=== PATIENT | male | born 1990 | race Caucasian/White ===

== ENCOUNTER 2020-08-26 16:33 | Outpatient (REF) | payer OTHER, SELFPAY | END 2020-08-26 16:34 | disposition home or self-care (01) | LOC: HO.LAB 16:33 | PROVIDERS: Visit Provider Internal Medicine | DX: Z20.828 Contact with and (suspected) exposure to other viral communicable diseases (principal) | CPT/HCPCS: C9803; U0003 ==

== ENCOUNTER 2025-03-18 06:08 | Observation (INO) | payer BC, OTHER, SELFPAY ==
[2025-03-18] VITALS (9 sets, daily range): BP systolic 132–168; BP diastolic 71–100; PULSE 70–89; RESP 16–18; TEMP 36.7–36.8; O2SAT 97–100; BMI 42.6; BMI 43.4
--- NOTE | ~2025-03-18 | CT_ITS ---
EXAMINATION: CT FOREARM WITHOUT CONTRAST, RIGHT CLINICAL INFORMATION: Injury, swelling, rule out occult fracture. COMPARISON: Plain films right forearm earlier same day. TECHNIQUE: Spiral CT imaging of the cervical spine performed in axial plane without contrast. Multiplanar reformatted images were constructed from the axial data set. This CT examination was performed using dose optimization techniques as appropriate, variously including the following: *Automated exposure control *Adjustment of mA and/or kV according to patient size (this includes techniques or standardized protocols for targeted exams where dose is matched to indication/reason for exam; i.e. extremities or head) *Use of iterative reconstruction technique FINDINGS: There is no definite bony fracture. There is no bone lesion or periostitis identified. There is no elbow joint effusion. There are mild degenerative changes in the ulnar trochlear joint. There are dorsal changes of soft tissue swelling with small foci of subcutaneous gas noted superficially, likely secondary to penetrating injury. No discrete hematoma or organized fluid collection is evident. CT/CT forearm RT wo IV con IMPRESSION: 1. No definite bony fracture or dislocation. 2. Dorsal soft tissue swelling, with small subcutaneous foci of gas present suggestive of penetrating injury. Electronically signed by: Jacob Garcia MD 03/18/2025 09:51 AM EDT
--- NOTE | ~2025-03-18 | XR_ITS ---
CLINICAL HISTORY: injury 2 view right forearm Comparison: None Findings: No fractures or dislocations. No joint effusion. Soft tissue edema dorsally with soft tissue gas. No radiopaque foreign body. IMPRESSION: Soft tissue edema and soft tissue gas. No radiopaque foreign body or fracture. This document has been electronically signed by: Bruce Rao MD on 03/18/2025 07:01:53
[2025-03-18] MEDS: Acetaminophen 325 MG TABLET 975 MG PO (07:24)
--- NOTE | 2025-03-18 07:33 | ED_ITS ---
HPI - Extremity Problem General Chief complaint: Extremity Injury, Upper Stated complaint: R Arm Pain Work Injury 03/18/25 Time Seen by Provider: 03/18/25 07:23 Source: patient Mode of arrival: ambulatory Limitations: no limitations History of Present Illness HPI Narrative: this is a 33 years old the patient presented to the emergency department complaining of right forearm pain. He states that he was at work about 05:00 injured the he right forearm with hydraulic push bar. He has been having pain since the injury. Forearm is swollen. MD Complaint: extremity pain Onset (ago): hour(s) (2) Pain Consistency: constant Location: right and other (forearm) Quality: aching Radiation: none Relieving factors: nothing Exacerbating factors: nothing Associated symptoms: denies other symptoms Related Data Home Medications ?Medication ?Instructions ?Recorded ?Confirmed acetaminophen 500 mg tablet 1,000 mg PO Q6H PRN Pain 0 03/18/25 03/18/25 cetirizine 10 mg tablet (Zyrtec) 10 mg PO DAILY PRN Al lergy Symptoms 03/18/25 03/18/25 Allergies Allergy/AdvReac Type Severity Reaction Status Date / Time No Known Allergies Allergy Verified 03/18/25 06:16 Review of Systems 2 Constitutional: Constitutional: Reports no additional constitutional complaints ENT: Reports system reviewed and no additional complaints, except as documented Cardiovascular: Cardiovascular: Reports no additional cardiovascular complaints [facility] Past Medical History [facility] Narrative: Denies any major medical problems Family History Family History (Updated 03/18/25 @ 13:27 by Lucero Bruce NP) Mother Breast cancer Social History Social History Alcohol intake: current Alcohol intake frequency: a few times a week Patient Tobacco Use Status: Never used Tobacco Substance Use Type: Marijuana Physical Exam 2 Vital Signs: Vital Signs: Last Vital Signs Temp 98.0 F 03/19/25 02:36 Pulse 85 03/19/25 02:36 Resp 18 03/19/25 02:36 BP 143/72 H 03/19/25 02:36 Pulse Ox 99 03/19/25 02:36 O2 Del Method Room Air 03/19/25 02:36 BMI result Body Mass Index 42.6 no acute distress Const: General: cooperative Nutritional Appearance: average body habitus Limitations: no limitations HEENT: Head: Yes normal to inspection General nose exam: Normal external nose present Face and sinus: Yes normal facial exam Mouth: Normal oral and palatal mucosa present Throat: Yes posterior oropharynx normal Neck: Neck: Yes normal visual inspection Chest: Chest palpation & inspection: normal inspection of the chest Resp: Effort & Inspection: normal respiratory effort Auscultation: clear to auscultation bilaterally Cardio: Jugular venous distension: no JVD Rate: regular rate Rhythm: r egular rhythm GI: Inspection: Yes normal to inspection Palpation (GI): Soft to palpation Skin: Other: he has a superficial abrasion in the right forearm 4 cm in length see picture Extrem: Other: there is swelling and tenderness in the right forearm radial pulses present Course Reevaluation(s) Reevaluation #1: CT reviewed he has area of gas in the subcutaneous suggesting of penetrating injury. I reached out to ortho via tiger text I sent a picture of the forearm reported the CT waiting for ortho response. [facility] Time: 10:11 Medications Administered Generic Name Dose Route Start Last Admin Trade Name Freq PRN Reason Stop Dose Admin Ceftriaxone Sodium 1 gm 03/18/25 12:00 03/18/25 12:23 Ceftriaxone Sodium 1 Gm Vial IVPUSH Not Given Q24H SHARATH Enoxaparin Sodium 40 mg 03/18/25 14:00 03/18/25 15:39 Enoxaparin Sodium 40 Mg/0.4 Ml Syringe SUBCUT 40 mg Q24H SHARATH Administration Vancomycin HCl 1,000 mg/ 270 mls @ 270 mls/hr 03/19/25 00:00 03/19/25 00:10 Sodium Chloride IV Infused Q8H SHARATH Infusion Sodium Chloride 3 ml 03/18/25 16:00 03/18/25 23:05 0.9 % Sodium Chloride Flush 3 Ml Syringe IVFLUSH 3 ml QSHIFT SHARATH Administration Discontinued Medications Generic Name Dose Route Start Last Admin Trade Name Freq PRN Reason Stop Dose Admin Acetaminophen 975 mg 03/18/25 07:10 03/18/25 07:24 Acetaminophen 325 Mg Tablet PO 03/18/25 07:11 975 mg ONCE ONE Administration Ceftriaxone Sodium 2 gm 03/18/25 10:46 03/18/25 12:23 Ceftriaxone Sodium 2 Gm Vial IVPUSH 03/18/25 10:47 2 gm ONCE ONE Administration Vancomycin HCl 2,000 mg in 500 mls @ 250 mls/hr 03/18/25 13:45 03/18/25 20:00 Vancomycin/Ns IV 03/18/25 15:44 Infused ONCE ONE Infusion Ketorolac Tromethamine 15 mg 03/18/25 07:32 03/18/25 08:01 Ketorolac Tromethamine 15 Mg/Ml Vial IVPUSH 03/18/25 07:33 15 mg ONCE ONE Administration Medical Decision Making Medical Decision Making [facility] Narrative: patient presented with injury at work in the right forearm 2 hours ago we will obtain imaging rule out fracture Lab Data 03/19/25 05:12 03/19/25 05:12 Labs: Lab Results 03/18/25 Range/Units 07:56 WBC 10.1 (4.8-10.8) X10*3/uL RBC 5.55 (4.60-5.80) X10*6/uL Hgb 15.9 (14.0-18.0) g/dl Hct 46.5 (42.0-52.0) % MCV 83.8 (80.0-98.0) fL MCH 28.6 (27.0-33.0) pg MCHC 34.2 (31.0-36.0) g/dl RDW 14.1 (11.0-16.0) % Plt Count 252 (160-400) X10*3/uL MPV 9.2 L (9.4-12.4) fL Immature Gran % (Auto) 1.5 H (0.0-0.4) % Neut % (Auto) 74.3 H (45-73) % Lymph % (Auto) 13.8 L (20-40) % [place] % (Auto) 7.5 (2-11) % Eos % (Auto) 2.2 (0-4) % Baso % (Auto) 0.7 (0-2) % Lymph # (Auto) 1.4 (1.2-4.9) X10*3/uL [place] # (Auto) 0.8 (0.1-1.2) X10*3/uL Eos # (Auto) 0.2 (0.0-0.4) X10*3/uL Baso # (Auto) 0.1 (0.0-0.2) X10*3/uL Abs Immat Gran (auto) 0.15 H (0.00-0.03) X10*3/uL Absolute Neuts (auto) 7.5 (2.0-8.3) x10*3/uL Absolute Nucleated RBC 0.000 (0.0-0.012) X10*3/uL Nucleated RBC % (auto) 0.0 (0.0-0.2) /100WBC ESR 6 (0-15) MM/HR Sodium 139 (135-145) mmol/L Potassium 5.3 H (3.3-5.1) mmol/L Chloride 106 (96-108) mmol/L Carbon Dioxide 24 (22-29) mmol/L Anion Gap 14 (12-20) BUN 18 H (9-16) mg/dL Creatinine 0.67 (0.5-1.4) mg/dL Estim Creat Clear Calc 178.5 Estimated GFR > 60 Random Glucose 100 (60-115) mg/dL Calcium 9.7 (8.4-10.2) mg/dL Total Bilirubin 0.5 (0.0-1.0) mg/dL AST 44 H (5-37) U/L ALT 26 (0-40) U/L Alkaline Phosphatase 50 (39-117) U/L Total Protein 8.2 H (6.5-8.0) g/dL Albumin 4.7 (3.5-5.0) g/dL Discharge Plan Discharge Clinical Impression: Cellulitis Qualifiers: Site of cellulitis: extremity Site of cellulitis of extremity: upper extremity Laterality: right Qualified Code(s): L03.113 - Cellulitis of right upper limb Patient Disposition: Admitted As Inpatient Interventions: Admission Worksheet (ED) Last Done: 03/18/25 19:29 Discharge Date/Time: 03/18/25 20:15
[2025-03-18] MEDS: Ketorolac Tromethamine 15 MG/ML VIAL IVPUSH (08:01)
[2025-03-18 08:03] LABS: MANUAL DIFF FLAG NO
[2025-03-18 08:05] LABS: Basophils Absolute Auto 0.1 X10*3/uL (0.0-0.2); Basophils Percent Auto 0.7 % (0-2); Eosinophils Absolute Auto 0.2 X10*3/uL (0.0-0.4); Eosinophils Percent Auto 2.2 % (0-4); Hematocrit 46.5 % (42.0-52.0); Hemoglobin 15.9 g/dl (14.0-18.0); Imm Gran Abs Auto 0.15 X10*3/uL (0.00-0.03); Imm Gran Pct Auto 1.5 % (0.0-0.4); Lymphocytes Absolute Auto 1.4 X10*3/uL (1.2-4.9); Lymphocytes Percent Auto 13.8 % (20-40); Mean Corpuscular HGB Conc 34.2 g/dl (31.0-36.0); Mean Corpuscular Hemoglobin 28.6 pg (27.0-33.0); Mean Corpuscular Volume 83.8 fL (80.0-98.0); Mean Platelet Volume 9.2 fL (9.4-12.4); Monocytes Absolute Auto 0.8 X10*3/uL (0.1-1.2); Monocytes Percent Auto 7.5 % (2-11); Neutrophils Absolute Auto 7.5 x10*3/uL (2.0-8.3); Neutrophils Percent Auto 74.3 % (45-73); Platelet Count 252 X10*3/uL (160-400); Red Blood Count 5.55 X10*6/uL (4.60-5.80); Red Cell Distribution Width 14.1 % (11.0-16.0); White Blood Count 10.1 X10*3/uL (4.8-10.8)
[2025-03-18 08:18] LABS: Alanine Aminotransferase 26 U/L (0-40); Albumin Level 4.7 g/dL (3.5-5.0); Alkaline Phosphatase 50 U/L (39-117); Anion Gap 14 (12-20); Aspartate Amino Transferase 44 U/L (5-37); Bilirubin Total 0.5 mg/dL (0.0-1.0); Blood Urea Nitrogen 18 mg/dL (9-16); Calcium 9.7 mg/dL (8.4-10.2); Carbon Dioxide 24 mmol/L (22-29); Chloride 106 mmol/L (96-108); Creatinine Clr Calc Pharmacy 178.5; Estimated Glomerular Filt Rate > 60; Glucose Random 100 mg/dL (60-115); Potassium 5.3 mmol/L (3.3-5.1); Sodium 139 mmol/L (135-145); Total Protein 8.2 g/dL (6.5-8.0)
[2025-03-18 08:45] LABS: Erythrocyte Sedimentation Rate 6 MM/HR (0-15)
--- NOTE | 2025-03-18 10:13 | PC.NURSE ---
Dr. De Dios went to bedside to speak with patient regarding imaging/lab results. Dr. De Dios speaking with ortho at this time, awaiting response. Female visitor at bedside. No acute distress at this time. Care ongoing by this RN.
--- NOTE | 2025-03-18 11:41 | PM.CNOR ---
History of Present Illness HPI Consult date: 03/18/25 Chief complaint: forearm injury cellulitis Narrative: 34 yo male in the ED for right forearm injury that happened earlier this morning at work. He states he was working on a press machine when the machine grazed his arm which was on a belt and he felt some pressure to the arm. He states the machine did not compress the arm. He also has an abraison along the ulnar side of the forearm which appears to be old. The skin around the abrasion is red and swollen. There is tenderness to the forearm. Unclear if this swelling / tenderness is due to the work injury or abrasion. Patient uncertain. Review of Systems Review of Systems: Yes all other systems are reviewed and are negative [facility] Social History Social History Alcohol intake: current Alcohol intake frequency: a few times a week Smoked in Last 30 Days: No Use of substances other than those prescribed or required for medical reasons: Yes Substance Use Type: Marijuana Substance Use Frequency: Daily Advance Directives: No Advance Directives Information Provided: Yes Do you have a plan to hurt others: No Plan Meds Allergies Allergy/AdvReac Type Severity Reaction Status Date / Time No Known Allergies Allergy Verified 03/18/25 06:16 Physical Exam Vital Signs: Vital Signs: Last Vital Signs Temp 98.1 F 03/18/25 06:20 Pulse 86 03/18/25 09:07 Resp 16 03/18/25 09:07 BP 150/99 H 03/18/25 09:07 Pulse Ox 99 03/18/25 09:07 O2 Del Method Room Air 03/18/25 09:07 BMI result Body Mass Index 42.6 Const: General: cooperative and no acute distress Orientation/consciousness: patient oriented x3 Resp: Effort & Inspection: normal respiratory effort and able to speak in complete sentences Cardio: Peripheral pulses: Peripheral pulses 2+ throughout Neuro: General: patient oriented x3 Extrem: Other: Right forearm normal to inspection. He does has diffuse swelling over the forearm with mild tenderness. No abscess formation. Abraison is scabbed but there is redness surrounding the area. He is able to perfrom full ROM at the wrist and elbow. Pulses present. Results Labs 03/18/25 07:56 03/18/25 07:56 Labs: Abnormal lab results 03/18/25 Range/Units 07:56 MPV 9.2 L (9.4-12.4) fL Immature Gran % (Auto) 1.5 H (0.0-0.4) % Neut % (Auto) 74.3 H (45-73) % Lymph % (Auto) 13.8 L (20-40) % Abs Immat Gran (auto) 0.15 H (0.00-0.03) X10*3/uL Potassium 5.3 H (3.3-5.1) mmol/L BUN 18 H (9-16) mg/dL AST 44 H (5-37) U/L Total Protein 8.2 H (6.5-8.0) g/dL H & H 03/18/25 Range/Units 07:56 Hgb 15.9 (14.0-18.0) g/dl Hct 46.5 (42.0-52.0) % All other labs normal. Assessment and Plan (1) Cellulitis: Qualifiers: Laterality: right Site of cellulitis: extremity Site of cellulitis of extremity: upper extremity Qualified Code(s): L03.113 - Cellulitis of right upper limb Status: Acute Plan CT forearm RT wo IV con IMPRESSION: 1. No definite bony fracture or dislocation. 2. Dorsal soft tissue swelling, with small subcutaneous foci of gas present suggestive of penetrating injury. No evidence of compartment syndrome No evidence of abscess formation requiring orthopedic intervention Reconsult if any new concerns. Procedures Date of Service Date of Service: 03/18/25
--- NOTE | 2025-03-18 12:10 | PHA.MEDREC ---
Addendum entered by Venessa Starr [facility] 03/18/25 12:18: reviewed Original Note: Pharmacy Consult ? Medication Reconciliation Pharmacy has completed the medication reconciliation. Spoke with pt and pt at bedside and they confirmed the pt only takes Zyrtec 10mg and Acetaminophen 500mg tabs as needed and nothing else at this time.
[2025-03-18] MEDS: cefTRIAXone sodium 2 GM VIAL IVPUSH (12:23)
--- NOTE | 2025-03-18 13:24 | P.HPHOSP_ITS ---
History of Present Illness Date of Service: 03/18/25 Chief Complaint: Wound 34-year-old man presenting with right forearm injury. Patient reports that he does not really know where he got up but may have gotten it from work. He denied fever, chills, nausea, vomiting, diarrhea. He did report some tenderness to the touch at the site. He denies any recent travel, injury. Forearm CT showing no definite bony fracture dislocation, dorsal soft tissue swelling with small subcutaneous foci of gas present suggestive of penetrating injury. Wound looks clean and dry, almost as if it happened several days ago. Patient has no fever leukocytosis. Mildly elevated blood pressure with no history of hypertension. Patient was given a dose of Rocephin, Toradol, Tylenol in the ER. He will be admitted for further management and treatment of acute cellulitis. Review of Systems 2 Review of Systems: Denies any recent fever chills or decrease in appetite respiratory denies any shortness of breath or cough cardiovascular denied chest pain gastrointestinal denies any dysphagia abdominal pain nausea vomiting or diarrhea genitourinary denies any dysuria frequency or hematuria musculoskeletal denies any joint pain or swelling neuropsych denies any weakness or seizures all other systems reviewed are negative [facility] Family History (Updated 03/18/25 @ 13:27 by Lucero Bruce NP) Mother Breast cancer Social History Alcohol intake: current Alcohol intake frequency: a few times a week Smoked in Last 30 Days: No Use of substances other than those prescribed or required for medical reasons: Yes Substance Use Type: Marijuana Substance Use Frequency: Daily Advance Directives: No Advance Directives Information Provided: Yes Do you have a plan to hurt others: No Plan Meds Allergies Allergy/AdvReac Type Severity Reaction Status Date / Time No Known Allergies Allergy Verified 03/18/25 06:16 Active Medications: Current Medications Acetaminophen (Acetaminophen 325 Mg Tablet) 650 mg PO Q6H PRN PRN Reason: Pain, Mild 1-3,fever,headache Calcium Carbonate (Calcium Carbonate 750 Mg Tab.Chew) 750 mg PO Q4H PRN PRN Reason: Heartburn Ceftriaxone Sodium (Ceftriaxone Sodium 1 Gm Vial) 1 gm IVPUSH Q24H SHARATH Enoxaparin Sodium (Enoxaparin Sodium 40 Mg/0.4 Ml Syringe) 40 mg SUBCUT Q24H SHARATH Vancomycin HCl 1,000 mg/ (Sodium Chloride) 270 mls @ 270 mls/hr IV Q12H [facility] Magnesium Hydroxide (Milk Of Magnesia 30 Ml Oral.Susp) 30 ml PO DAILY PRN PRN Reason: Constipation Melatonin (Melatonin 3 Mg Tablet) 6 mg PO BEDTIME PRN PRN Reason: Insomnia Ondansetron HCl (Ondansetron Hcl 4 Mg/2 Ml Vial) 4 mg IVPUSH Q8H PRN PRN Reason: Nausea and Vomiting Oxycodone HCl (Oxycodone Hcl Immed Release 5 Mg Tablet) 5 mg PO Q6H PRN PRN Reason: Pain, Severe (Pain Scale 7-10) Pharmacy Consult (Consult Rx Vancomycin Dosing) 1 each MISCELLANE DAILY PRN PRN Reason: Consult order Sodium Chloride (0.9 % Sodium Chloride Flush 3 Ml Syringe) 3 ml IVFLUSH QSHIFT [facility] Home Medications ?Medication ?Instructions ?Recorded ?Confirmed ?Last Taken ?Type acetaminophen 500 mg tablet 1,000 mg PO Q6H PRN Pain 03/18/25 03/18/25 Unknown History cetirizine 10 mg tablet (Zyrtec) 10 mg PO DAILY PRN Allergy Symptoms 03/18/25 03/18/25 Unknown History Physical Exam 2 Vital Signs and Narrative: Vital Signs: Last Vital Signs Temp 98.1 F 03/18/25 06:20 Pulse 70 03/18/25 12:00 Resp 16 03/18/25 12:00 BP 168/100 H 03/18/25 12:00 Pulse Ox 100 03/18/25 12:00 O2 Del Method Room Air 03/18/25 12:00 BMI result Body Mass Index 42.6 Appearing in no acute distress lung sounds are clear to auscultation heart regular rate rhythm, clear S1, S2 positive bowel sounds, abdomen is soft, nontender neuro patient is alert x3, no focal deficits Results Labs 03/18/25 07:56 03/18/25 07:56 Labs: Laboratory Results - last 24 hr 03/18/25 07:56 MCV 83.8 MCH 28.6 MCHC 34.2 RDW 14.1 Plt Count 252 MPV 9.2 L Immature Gran % (Auto) 1.5 H Neut % (Auto) 74.3 H Lymph % (Auto) 13.8 L [place] % (Auto) 7.5 Eos % (Auto) 2.2 Baso % (Auto) 0.7 Lymph # (Auto) 1.4 [place] # (Auto) 0.8 Eos # (Auto) 0.2 Baso # (Auto) 0.1 Abs Immat Gran (auto) 0.15 H Absolute Neuts (auto) 7.5 Absolute Nucleated RBC 0.000 Nucleated RBC % (auto) 0.0 ESR 6 Anion Gap 14 Estim Creat Clear Calc 178.5 Estimated GFR > 60 Random Glucose 100 Calcium 9.7 Total Bilirubin 0.5 AST 44 H ALT 26 Alkaline Phosphatase 50 Total Protein 8.2 H Albumin 4.7 Imaging Radiologist's Impressions: Impressions Forearm CT 03/18/25 07:26 IMPRESSION: 1. No definite bony fracture or dislocation. 2. Dorsal soft tissue swelling, with small subcutaneous foci of gas present suggestive of penetrating injury. Electronically signed by: Jacob Garcia MD 03/18/2025 09:51 AM EDT RP Assessment and Plan (1) Cellulitis: Qualifiers: Laterality: right Site of cellulitis: extremity Site of cellulitis of extremity: upper extremity Qualified Code(s): L03.113 - Cellulitis of right upper limb Status: Acute Plan 34-year-old man admitted with cellulitis of right forearm after possible injury at work Cellulitis, acute Right forearm, does not appear to be fresh, maybe a few days old Forearm cat scan negative for fracture or dislocation, dorsal soft tissue swelling with small subcutaneous foci of gas General surgery consultation Wound is clean and dry at this time Hyperkalemia Potassium 5.3 Monitor Elevated blood pressure reading Patient denies any history of hypertension Monitor May consider adding antihypertensive agent Seasonal allergies Continue cetirizine DVT prophylaxis with Lovenox Full code Quality Stroke Does the patient have a stroke diagnosis?: No VTE Prior VTE?: No VTE Risk Level:: Medical - moderate - high VTE Device Contraindication: N/A - Device Ordered VTE Drug Contraindication: N/A - Med Ordered
[2025-03-18] MEDS: vancomycin/NS 2,000 MG/500 ML PLAST..BAG 250 MG IV (15:39)
[2025-03-18] MEDS: Enoxaparin Sodium 40 MG/0.4 ML SYRINGE SUBCUT (15:39)
[2025-03-18] MEDS: 0.9 % Sodium Chloride Flush 3 ML SYRINGE IVFLUSH ×2 (15:39→23:05)
[2025-03-18] MEDS: vancomycin HCL 1,000 MG in 0.9 % Sodium Chloride 250 ML 270 MG IV (23:09)
[2025-03-19 02:36] VITALS: BP 143/72; PULSE 85; RESP 18; TEMP 36.7; O2SAT 99
[2025-03-19 06:06] LABS: MANUAL DIFF FLAG NO
[2025-03-19 06:24] LABS: Basophils Percent Auto 0.3 % (0-2); Eosinophils Absolute Auto 0.2 X10*3/uL (0.0-0.4); Eosinophils Percent Auto 2.2 % (0-4); Hematocrit 44.6 % (42.0-52.0); Hemoglobin 15.3 g/dl (14.0-18.0); Imm Gran Abs Auto 0.14 X10*3/uL (0.00-0.03); Imm Gran Pct Auto 1.5 % (0.0-0.4); Lymphocytes Percent Auto 10.8 % (20-40); Mean Corpuscular HGB Conc 34.3 g/dl (31.0-36.0); Mean Corpuscular Hemoglobin 28.5 pg (27.0-33.0); Mean Corpuscular Volume 83.1 fL (80.0-98.0); Mean Platelet Volume 9.5 fL (9.4-12.4); Monocytes Absolute Auto 0.7 X10*3/uL (0.1-1.2); Monocytes Percent Auto 7.1 % (2-11); Neutrophils Absolute Auto 7.1 x10*3/uL (2.0-8.3); Neutrophils Percent Auto 78.1 % (45-73); Platelet Count 236 X10*3/uL (160-400); Red Blood Count 5.37 X10*6/uL (4.60-5.80); Red Cell Distribution Width 14.1 % (11.0-16.0); White Blood Count 9.1 X10*3/uL (4.8-10.8)
[2025-03-19 06:28] LABS: Creatinine Clr Calc Pharmacy 208.6; Estimated Glomerular Filt Rate > 60
[2025-03-19 07:41] LABS: Anion Gap 12 (12-20); Blood Urea Nitrogen 11 mg/dL (9-16); Carbon Dioxide 24 mmol/L (22-29); Chloride 106 mmol/L (96-108); Glucose Random 97 mg/dL (60-115); Potassium 4.2 mmol/L (3.3-5.1); Sodium 138 mmol/L (135-145)
[2025-03-19 07:50] VITALS: BP 135/77; PULSE 84; RESP 18; TEMP 36.7; O2SAT 97
[2025-03-19] MEDS: 0.9 % Sodium Chloride Flush 3 ML SYRINGE IVFLUSH ×2 (07:55→15:21)
[2025-03-19] MEDS: vancomycin HCL 1,000 MG in 0.9 % Sodium Chloride 250 ML 270 MG IV (07:55)
[2025-03-19 12:00] VITALS: BP 125/70; PULSE 83; RESP 19; TEMP 37.4; O2SAT 99
[2025-03-19] MEDS: cefTRIAXone sodium 1 GM VIAL IVPUSH (12:26)
[2025-03-19 12:52] LABS: Vancomycin Random 13.2 mcg/mL (15-20)
[2025-03-19 12:55] LABS: Lactic Acid 1.1 mmol/L (0.5-2.0)
--- NOTE | 2025-03-19 13:10 | MHC.CM.PN ---
pt lives with he is indepdent has his [place] in [facility] [place] dc plan home no services
[2025-03-19] MEDS: vancomycin HCL 1,250 MG in 0.9 % Sodium Chloride 250 ML 166.67 MG IV (15:17)
[2025-03-19] MEDS: Enoxaparin Sodium 40 MG/0.4 ML SYRINGE SUBCUT (15:18)
--- NOTE | 2025-03-19 15:46 | PM.DS ---
DS: Providers Provider Date of Service: 03/19/25 Date of admission: 03/18/25 11:09 Date of discharge: 03/19/25 Primary care physician: None Physician Consults: 03/18/25 11:09 Consult to Orthopedics Routine Consulting Provider: [facility] Reason for consultation: penetrating injury with subcutanoues gas formation forearm 03/18/25 11:10 Consult to Orthopedics Stat Consulting Provider: [facility] Reason for consultation: swelling rt forearm ,subq gas ,redness 03/18/25 20:49 Consult to Wound Care Routine Reason for consultation: red/scab rt arm Attending physician on discharge: Ronny Noel Discharging clinician: Marta Rojo DS: Diagnosis Discharge Diagnosis (1) Cellulitis: Status: Acute DS: Summary Hospital Course Hospital Course: From H&P on the day of admission 34-year-old man presenting with right forearm injury. Patient reports that he does not really know where he got up but may have gotten it from work. He denied fever, chills, nausea, vomiting, diarrhea. He did report some tenderness to the touch at the site. He denies any recent travel, injury. Forearm CT showing no definite bony fracture dislocation, dorsal soft tissue swelling with small subcutaneous foci of gas present suggestive of penetrating injury. Wound looks clean and dry, almost as if it happened several days ago. Patient has no fever leukocytosis. Mildly elevated blood pressure with no history of hypertension. Patient was given a dose of Rocephin, Toradol, Tylenol in the ER. He will be admitted for further management and treatment of acute cellulitis. right arm Cellulitis Right forearm wound, does not appear to be acute but likely source of small foci of gas seen on CT scan. No evidence of foreign body, compartment soft, no evidence of compartment syndrome. CPK normal. Seen by Orthopedic surgery, no compartment syndrome, no indication for any surgical intervention. Lactic acid normal, no subcutaneous emphysema on exam. No white count, no fever. Erythema improving. will discharge to complete course of antibiotics. Wound is clean and dry at this time. Hyperkalemia Potassium 5.3. Resolved. Time Attestation Discharge Coordination Time (in mins): 35 Quality: Safe Use of Opioids Does Pt have an Active Cancer Diagnosis on the Problem List?: No Quality: Stroke Does the patient have a stroke diagnosis?: No Physical Exam Vital Signs: Vital Signs: Last Vital Signs Temp 99.3 F 03/19/25 12:00 Pulse 83 03/19/25 12:00 Resp 19 03/19/25 12:00 BP 125/70 03/19/25 12:00 Pulse Ox 99 03/19/25 12:00 O2 Del Method Room Air 03/19/25 12:00 BMI result Body Mass Index 43.4 Const: General: cooperative, comfortable, no acute distress, alert and awake Nutritional Appearance: obese Orientation/consciousness: patient oriented x3 Resp: Effort & Inspection: normal respiratory effort, able to speak in complete sentences, no respiratory distress and no use of accessory muscles Cardio: Rate: regular rate Skin: Other: right forearm mild swelling, some bruising; compartments soft; palpable distal pulses; no subq emphysema. wound with no fluctuance or drainage Neuro: General: patient oriented x3 DS: Data Data Completed and Pending Labs on day of discharge: Laboratory Results - last 24 hr 03/19/25 03/19/25 05:12 12:29 WBC 9.1 RBC 5.37 Hgb 15.3 Hct 44.6 MCV 83.1 MCH 28.5 MCHC 34.3 RDW 14.1 Plt Count 236 MPV 9.5 Immature Gran % (Auto) 1.5 H Neut % (Auto) 78.1 H Lymph % (Auto) 10.8 L [place] % (Auto) 7.1 Eos % (Auto) 2.2 Baso % (Auto) 0.3 Lymph # (Auto) 1.0 L [place] # (Auto) 0.7 Eos # (Auto) 0.2 Baso # (Auto) 0.0 Abs Immat Gran (auto) 0.14 H Absolute Neuts (auto) 7.1 Absolute Nucleated RBC 0.000 Nucleated RBC % (auto) 0.0 Sodium 138 Potassium 4.2 D Chloride 106 Carbon Dioxide 24 Anion Gap 12 BUN 11 Creatinine 0.58 Estim Creat Clear Calc 208.6 Estimated GFR > 60 Random Glucose 97 Lactic Acid 1.1 Calcium 9.0 D Random Vancomycin 13.2 L Preliminary micro results at discharge 03/18/25 07:55 Blood Culture - Preliminary Blood - Venous No growth after 24 hours. 03/18/25 07:46 Blood Culture - Preliminary Blood - Venous No growth after 24 hours. Discharge Plan Discharge Patient Disposition: Home, Self-Care Discharge Diagnosis: RUE cellulitis Referrals: Physician,None [Primary Care Provider, Medical] - 1 Week Discharge Medications: New amoxicillin-pot clavulanate 875-125 mg tablet 1 tab PO Q12H 6 Days Qty: 12 0RF doxycycline monohydrate 100 mg tablet 100 mg PO BID 6 Days Qty: 12 0RF Continued cetirizine [Zyrtec] 10 mg Tablet 10 mg PO DAILY PRN (Reason: Allergy Symptoms) acetaminophen 500 mg Tablet 1,000 mg PO Q6H PRN (Reason: Pain) Discharge Orders: Discharge Order (Routine); Ordered 03/19/25 Ordered By: Marta Rojo Activity on Discharge: As tolerated Stand Alone Forms: Patient Portal Discharge page, Work/School Release Print Language: Salvadorean Care Plan Goals: See below Health Concerns: Right upper extremity cellulitis Plan of Treatment: Complete course of antibiotics as prescribed Monitor for worsening swelling, redness, pain or drainage from wound or fever- return to urgent Care, nearest ED Call to schedule follow-up appointment with PCP Assessment: See discharge summary Discharge Date/Time: 03/19/25 17:23
[2025-03-19 16:01] VITALS: BP 151/85; PULSE 95; RESP 18; TEMP 36.7; O2SAT 98
== END 2025-03-19 17:23 | disposition home or self-care (01) ==
LOC: HO.ED 11:13 → HO.EDOVER 11:35 → HO.S3 19:24
PROVIDERS: Nurse Practitioner Acute Care; Admitting Provider Student in an Organized Health Care Education/Training Program; Emergency Provider Emergency Medicine; Visit Provider Physician Assistant Medical
DX: L03.113 Cellulitis of right upper limb (principal); M79.631 Pain in right forearm; E87.5 Hyperkalemia; R03.0 Elevated blood-pressure reading, without diagnosis of hypertension
CPT/HCPCS: 36415; 73090; 73200; 80048; 80053; 80202; 82550; 82565; 83605; 85025; 85652; 87040; 96365; 96366; 96372; 96375; 96376; 99221; 99285; J0696; J1650; J1885; J3370; J3371

== ENCOUNTER → 2025-03-18 06:42 | Outpatient (BNV) | payer OTHER, SELFPAY | PROVIDERS: Emergency Provider Emergency Medicine; Visit Provider Radiology Vascular & Interventional Radiology | DX: R22.31 Localized swelling, mass and lump, right upper limb (principal) | CPT/HCPCS: 73090; 73200 ==

== ENCOUNTER → 2025-03-18 11:09 | Outpatient (BNV) | payer OTHER, SELFPAY | PROVIDERS: Admitting Provider Student in an Organized Health Care Education/Training Program; Emergency Provider Emergency Medicine; Visit Provider Physician Assistant | DX: L03.113 Cellulitis of right upper limb (principal) | CPT/HCPCS: 99221 ==

== ENCOUNTER → 2025-03-18 11:09 | Outpatient (BNV) | payer OTHER, SELFPAY | PROVIDERS: Admitting Provider Student in an Organized Health Care Education/Training Program; Emergency Provider Emergency Medicine; Visit Provider Nurse Practitioner Acute Care | DX: L03.113 Cellulitis of right upper limb (principal) | CPT/HCPCS: 99223; 99239 ==

== ENCOUNTER 2025-03-29 09:00 | Emergency (ER) | payer OTHER, SELFPAY ==
--- NOTE | ~2025-03-29 | CT_ITS ---
CLINICAL HISTORY: laceration, cellulitis, ?abscess CT right forearm with contrast Comparison: 03/18/2025 Findings: There is edema of the soft tissues of the right forearm predominating along its dorsal and ulnar surfaces with overall improvement since the prior study. There is a small soft tissue defect within the ulnar aspect of the midforearm. There has been interval resolution of soft tissue gas. There are small poorly defined pockets of fluid within the ulnar aspect of the forearm but there is no current evidence of walled-off abscess. Vasculature is unremarkable. There is no joint effusion. There is no fracture or dislocation. There is no evidence of osteomyelitis. Impression: 1. Significant residual edema and pockets of fluid within the soft tissues with no current evidence of drainable walled-off fluid collection. This document has been electronically signed by: Shalini Escobedo MD on 03/29/2025 17:15:32
[2025-03-29 09:02] VITALS: BP 129/79; PULSE 82; RESP 16; TEMP 36.1; O2SAT 98; BMI 43.2
--- NOTE | 2025-03-29 09:14 | ED_ITS ---
HPI - Wound/Laceration General Chief Complaint: Wound/Laceration Stated Complaint: IV antibiotics sent from Time Seen by Provider: 03/29/25 09:10 Source: patient Mode of arrival: ambulatory Limitations: no limitations History of Present Illness ED Provider: Suzi Webb NP HPI narrative: This is a 35-year-old male who presents emergency department for re-evaluation of a laceration to the right forearm with associated cellulitis. He is coming from urgent care today. He was firstst seen in the emergency department 03/18/2025 reporting he sustained injury to the right forearm from a hydraulic push bar while at work had associated pain and swelling with laceration. There was no evidence of fracture on imaging however CT showed dorsal soft tissue swelling with small subcutaneous foci of gas suggestive of a penetrating injury. He was seen by Orthopedics and felt there was no indication for surgical intervention. He was hospitalized for a day and discharged on 03/19/2025 with a prescription for Augmentin and doxycycline for a total of 7 day course. He states that 4 days later he presented to urgent care; health MD requiring a work note as well as reports of persistent pain. He was given a prescription for tramadol as well as ibuprofen and states that on the stay he was given an additional 10 days of doxycycline. At this time he has completed the Augmentin he is still taking the doxycycline. They requested that he return today for re-evaluation (6 days following their initial evaluation) and was told to come to the emergency department today for further evaluation as there was still warmth to the forearm. He has experienced no fevers or chills. No colds with. No active drainage from the site. States that the redness has overall improved. He does still continue to have some pain but has not required taking the tramadol lately. Previous blood cultures obtained 03/18/2025 were negative. Related Data Home Medications ?Medication ?Instructions ?Recorded ?Confirmed acetaminophen 500 mg tablet 1,000 mg PO Q6H PRN Pain 0 03/18/25 03/18/25 cetirizine 10 mg tablet (Zyrtec) 10 mg PO DAILY PRN Al lergy Symptoms 03/18/25 03/18/25 Previous Rx's ?Medication ?Instructions ?Recorded amoxicillin 875 mg-potassium 1 tab PO Q12H 6 days #12 tabs 03/19/25 clavulanate 125 mg tablet doxycycline monohydrate 100 mg 100 mg PO BID 6 days #1 2 tabs 03/19/25 tablet Allergies Allergy/AdvReac Type Severity Reaction Status Date / Time No Known Allergies Allergy Verified 03/29/25 09:07 Review of Systems 2 Review of Systems: Yes all other systems are reviewed and are negative [facility] Past Medical History Attestation statement: The following information was validated with the patient. Source: old records reviewed Family History Family History (Updated 03/18/25 @ 13:27 by Lucero Bruce NP) Mother Breast cancer Social History Social History Alcohol intake: current Alcohol intake frequency: a few times a week Patient Tobacco Use Status: Never used Tobacco Substance Use Type: Marijuana Advance Directives: No Advance Directives Information Provided: Yes Do you have a plan to hurt others: No Plan service: No Physical Exam 2 Vital Signs: Vital Signs: Last Vital Signs Temp 97.3 F 03/29/25 16:00 Pulse 75 03/29/25 16:00 Resp 16 03/29/25 16:00 BP 126/65 03/29/25 16:00 Pulse Ox 100 03/29/25 16:00 O2 Del Method Room Air 03/29/25 16:00 BMI result Body Mass Index 43.2 Appearance: Alert.?Oriented to person, place and time. No acute distress.?Normal affect.?? CVS: Heart sounds normal. Normal heart rate and rhythm.? Pulses normal.?? Respiratory: No respiratory distress.? Lung sounds clear to auscultation bilaterally??? Skin: Skin warm and dry.? Normal skin color.? Extremities: Right forearm localized swelling and warmth upon palpation, no significant erythema. Laceration appears healing. Through his mild induration surrounding laceration but overall Compartment seems soft. 2+ radial pulse Neuro: Moves all extremities spontaneously. Sensation intact bilaterally. Ambulates with normal steady gait. Course Reevaluation(s) Reevaluation #1: Forearm CT reveals interval resolution of the previously visualized soft tissue gas is a few within the soft tissue but no current evidence of drainable walled- off fluid collection. Reviewed this with my attending Dr. Jaime, feel he is otherwise appropriate for discharge home with completion of previously prescribed course of antibiotics. Outpatient follow-up with primary care provider. Given strict return precautions. Time: 17:24 Medications Administered Discontinued Medications Generic Name Dose Route Start Last Admin Trade Name Azra PRN Reason Stop Dose Admin Sodium Chloride 1,000 mls @ 999 mls/hr 03/29/25 13:00 03/29/25 14:25 Ns IV 03/29/25 14:00 Infused .Q1H1M SHARATH Infusion Iohexol 100 ml 03/29/25 14:02 03/29/25 14:02 Iohexol 350 Mg/Ml 100 Ml Infus..Btl IV 03/29/25 14:03 85 ml ONCE ONE Administration Medical Decision Making Medical Decision Making [facility] Narrative: Patient is a 35 year old male who presents emergency department for re- evaluation of cellulitis to the right forearm in the setting of a recent laceration as per HPI. Initial evaluation 03/18/2025 given a 7 day course of Augmentin and doxycycline. In the interim he presented to urgent Care, 03/23/25 was given an additional 10 days of doxycycline he has since completed the Augmentin he has 6 days left of doxycycline. Urgent care advised him to come back to emergency department for evaluation today given there was still palpable warmth and not complete resolution. At the time my evaluation he is well- appearing, nontoxic, afebrile without tachycardia. The right upper extremity is neurovascularly intact distally. There was no erythema there is mild warmth upon palpation. There is some induration surrounding the laceration but overall compartment feels soft. Has full range of motion to the elbow joint. In comparison to photo of his forearm during his prior ED visit this appears much improved. Will obtain CBC to evaluate for leukocytosis/ anemia, CMP and lipase to evaluate for abnormal electrolytes /abnormal renal function, CPK. Based on history and exam, do not feel as the patient requires IV antibiotics at this time. Given the recommendation from provide her urgent care did discuss this with my attending Dr. Winkler, we will obtain CT scan to exclude any abscess given the duration of symptoms and current presentation. Differential Diagnosis Differential Diagnoses: The differential diagnosis associated with the presentation includes (Cellulitis, not consistent with compartment syndrome, unlikely DVT, given clinical improvement lower suspicion for osteomyelitis, no repeat injury to suggest fracture) Admission/Observation Consideration of admission/observation: Escalation of care including admission/observation considered Lab Data [facility] Lab Attestation statement: I reviewed the patient's lab results. 03/29/25 09:50 03/29/25 09:50 Labs: Lab Results 03/29/25 Range/Units 09:50 WBC 9.4 (4.8-10.8) X10*3/uL RBC 5.30 (4.60-5.80) X10*6/uL Hgb 15.3 (14.0-18.0) g/dl Hct 44.3 (42.0-52.0) % MCV 83.6 (80.0-98.0) fL MCH 28.9 (27.0-33.0) pg MCHC 34.5 (31.0-36.0) g/dl RDW 13.7 (11.0-16.0) % Plt Count 273 (160-400) X10*3/uL MPV 9.5 (9.4-12.4) fL Immature Gran % (Auto) 3.1 H (0.0-0.4) % Neut % (Auto) 68.6 (45-73) % Lymph % (Auto) 15.5 L (20-40) % [place] % (Auto) 7.8 (2-11) % Eos % (Auto) 4.0 (0-4) % Baso % (Auto) 1.0 (0-2) % Lymph # (Auto) 1.5 (1.2-4.9) X10*3/uL [place] # (Auto) 0.7 (0.1-1.2) X10*3/uL Eos # (Auto) 0.4 (0.0-0.4) X10*3/uL Baso # (Auto) 0.1 (0.0-0.2) X10*3/uL Abs Immat Gran (auto) 0.29 H (0.00-0.03) X10*3/uL Absolute Neuts (auto) 6.4 (2.0-8.3) x10*3/uL Absolute Nucleated RBC 0.000 (0.0-0.012) X10*3/uL Nucleated RBC % (auto) 0.0 (0.0-0.2) /100WBC Sodium 139 (135-145) mmol/L Potassium 4.3 (3.3-5.1) mmol/L Chloride 106 (96-108) mmol/L Carbon Dioxide 27 (22-29) mmol/L Anion Gap 10 L (12-20) BUN 17 H (9-16) mg/dL Creatinine 0.58 (0.5-1.4) mg/dL Estim Creat Clear Calc 206.0 Estimated GFR > 60 Random Glucose 86 (60-115) mg/dL Lactic Acid 1.6 (0.5-2.0) mmol/L Calcium 9.6 D (8.4-10.2) mg/dL Total Bilirubin 0.4 (0.0-1.0) mg/dL AST 19 (5-37) U/L ALT 21 (0-40) U/L Alkaline Phosphatase 56 (39-117) U/L Total Creatine Kinase 37 L (38-174) U/L Total Protein 7.8 (6.5-8.0) g/dL Albumin 4.7 (3.5-5.0) g/dL Radiology Impression Discussion of test interpretation with radiology: I have reviewed the radiologist's reading. Radiologist Impression: CT right forearm with contrast Comparison: 03/18/2025 Findings: There is edema of the soft tissues of the right forearm predominating along its dorsal and ulnar surfaces with overall improvement since the prior study. There is a small soft tissue defect within the ulnar aspect of the midforearm. There has been interval resolution of soft tissue gas. There are small poorly defined pockets of fluid within the ulnar aspect of the forearm but there is no current evidence of walled-off abscess. Vasculature is unremarkable. There is no joint effusion. There is no fracture or dislocation. There is no evidence of osteomyelitis. Impression: 1. Significant residual edema and pockets of fluid within the soft tissues with no current evidence of drainable walled-off fluid collection. Independent Historian Clinical information obtained from an independent historian. History obtained from or confirmed by: Spouse External Record Review External record reviewed: Inpatient record and Outpatient record Prescription Management I considered prescription management with: Antibiotic Discharge Plan Discharge Clinical Impression: Cellulitis Qualifiers: Site of cellulitis: extremity Site of cellulitis of extremity: upper extremity Laterality: right Qualified Code(s): L03.113 - Cellulitis of right upper limb Patient Disposition: Home, Self-Care Instructions: Cellulitis (ED) Additional Instructions: As discussed, based on the previous appearance of the cellulitis to your forearm on your 1st ED visit today on examination this appears improved. Your blood counts do not show sign of significantly worsening infection. CT imaging does not show evidence of an abscess or deep space pus-like collection that would require further intervention or drainage. It is recommended at this time that you complete the course of doxycycline you have been prescribed. Please follow- up with your primary care doctor for re-evaluation. You may return with any new or worsening symptoms or concerns which include but is not limited to fevers, chills, severe worsening pain, redness, swelling, numbness or tingling to the arm/hand. Prescriptions: No Action cetirizine [Zyrtec] 10 mg Tablet 10 mg PO DAILY PRN (Reason: Allergy Symptoms) acetaminophen 500 mg Tablet 1,000 mg PO Q6H PRN (Reason: Pain) amoxicillin-pot clavulanate 875-125 mg tablet 1 tab PO Q12H 6 Days Qty: 12 0RF doxycycline monohydrate 100 mg tablet 100 mg PO BID 6 Days Qty: 12 0RF Referrals: Physician,None [Primary Care Provider, Medical] Print Language: Lithuanian
[2025-03-29 09:56] LABS: MANUAL DIFF FLAG NO
[2025-03-29 10:00] VITALS: BP 137/89; PULSE 85; RESP 16; TEMP 36.9; O2SAT 99
[2025-03-29 10:00] LABS: Basophils Absolute Auto 0.1 X10*3/uL (0.0-0.2); Eosinophils Absolute Auto 0.4 X10*3/uL (0.0-0.4); Hematocrit 44.3 % (42.0-52.0); Hemoglobin 15.3 g/dl (14.0-18.0); Imm Gran Abs Auto 0.29 X10*3/uL (0.00-0.03); Imm Gran Pct Auto 3.1 % (0.0-0.4); Lymphocytes Absolute Auto 1.5 X10*3/uL (1.2-4.9); Lymphocytes Percent Auto 15.5 % (20-40); Mean Corpuscular HGB Conc 34.5 g/dl (31.0-36.0); Mean Corpuscular Hemoglobin 28.9 pg (27.0-33.0); Mean Corpuscular Volume 83.6 fL (80.0-98.0); Mean Platelet Volume 9.5 fL (9.4-12.4); Monocytes Absolute Auto 0.7 X10*3/uL (0.1-1.2); Monocytes Percent Auto 7.8 % (2-11); Neutrophils Absolute Auto 6.4 x10*3/uL (2.0-8.3); Neutrophils Percent Auto 68.6 % (45-73); Platelet Count 273 X10*3/uL (160-400); Red Cell Distribution Width 13.7 % (11.0-16.0); White Blood Count 9.4 X10*3/uL (4.8-10.8)
[2025-03-29 10:11] LABS: Alanine Aminotransferase 21 U/L (0-40); Albumin Level 4.7 g/dL (3.5-5.0); Alkaline Phosphatase 56 U/L (39-117); Anion Gap 10 (12-20); Aspartate Amino Transferase 19 U/L (5-37); Bilirubin Total 0.4 mg/dL (0.0-1.0); Blood Urea Nitrogen 17 mg/dL (9-16); Calcium 9.6 mg/dL (8.4-10.2); Carbon Dioxide 27 mmol/L (22-29); Chloride 106 mmol/L (96-108); Estimated Glomerular Filt Rate > 60; Glucose Random 86 mg/dL (60-115); Lactic Acid 1.6 mmol/L (0.5-2.0); Potassium 4.3 mmol/L (3.3-5.1); Sodium 139 mmol/L (135-145); Total Protein 7.8 g/dL (6.5-8.0)
[2025-03-29 12:00] VITALS: BP 109/70; PULSE 73; RESP 16; TEMP 36.3; O2SAT 100
[2025-03-29] MEDS: 0.9 % Sodium Chloride 1,000 ML 999 ML IV (12:56)
[2025-03-29] MEDS: iohexoL 350 MG/ML 100 ML INFUS..BTL IV (14:02)
--- NOTE | 2025-03-29 15:47 | PC.NURSE ---
spoke with radiology- re:CT forearm- per dayanara Hadley will reach out to [facility] radi[facility]
[2025-03-29 16:00] VITALS: BP 126/65; PULSE 75; RESP 16; TEMP 36.3; O2SAT 100
[2025-03-29 17:36] VITALS: BP 126/65; PULSE 75; RESP 16; TEMP 36.3; O2SAT 100
== END 2025-03-29 17:37 | disposition home or self-care (01) ==
PROVIDERS: Nurse Practitioner Family; Emergency Provider Emergency Medicine
DX: S51.811A Laceration without foreign body of right forearm, initial encounter (principal); L03.113 Cellulitis of right upper limb; R60.0 Localized edema; X58.XXXA Exposure to other specified factors, initial encounter; Y93.9 Activity, unspecified; Y92.9 Unspecified place or not applicable; Y99.0 Civilian activity done for income or pay; Z79.899 Other long term (current) drug therapy
CPT/HCPCS: 36415; 73201; 80053; 82550; 83605; 85025; 87040; 96360; 99284; Q9967

== ENCOUNTER → 2025-03-29 12:49 | Outpatient (BNV) | payer OTHER, SELFPAY | PROVIDERS: Emergency Provider Emergency Medicine; Visit Provider Radiology Diagnostic Radiology | DX: R60.0 Localized edema (principal) | CPT/HCPCS: 73201 ==